=== PATIENT | male | born 1975 | race Hispanic/Latino ===

== ENCOUNTER 2020-10-09 20:38 | Inpatient (IN) | payer BC, OTHER ==
[2020-10-09] MEDS ORDERED: ACETAMINOPHEN 500 MG TAB ONE (21:20)
[2020-10-09] MEDS ORDERED: NA CHLORIDE 0.9% 1,000 ML ONE (21:21)
[2020-10-09 21:25] LABS: Protime INR 1.24
[2020-10-09 21:39] LABS: Basophils % 0.5 % (0-1.3); Hematocrit 39.4 % (39.6-49.0); Lymphocytes % 15.5 % (15.3-44.8); MPV 7.5 fL (7.6-11.3); RBC Red Blood Cell Count 4.92 M/uL (4.33-5.43)
[2020-10-09 21:44] LABS: ALT/SGPT 30 U/L (12-78); AST/SGOT 20 U/L (15-37); Albumin 2.3 g/dL (3.4-5.0); Alkaline Phosphatase 125 U/L (45-117); BUN Blood Urea Nitrogen 8 mg/dL (7-18); Bicarbonate 28 mmol/L (21-32); Bilirubin Direct 0.2 mg/dL (0-0.2); Bilirubin Total 0.6 mg/dL (0.2-1.0); Glucose Level 292 mg/dL (74-106); NT PRO-BNP 25 pg/mL (<125); Potassium 3.5 mmol/L (3.5-5.1); Protein, Total 7.7 g/dL (6.4-8.2); Sodium Level 139 mmol/L (136-145); Troponin (Emerg Dept Use Only) < 0.02 ng/mL (0.0-0.045)
[2020-10-09] MEDS ORDERED: AZITHROMYCIN 500 MG INJ IVPB ONE (22:18)
[2020-10-09] MEDS ORDERED: NA CHLORIDE 0.9% 250 ML ONE (22:18)
[2020-10-09] MEDS ORDERED: dexAMETHasone 10 MG/ML VIAL ONE (22:19)
--- NOTE | 2020-10-09 22:50 | ER ---
Nurse's Notes [facility] Name: Marcelo Cruz Jr Age: 45 yrs Sex: Male : 1975 Arrival Date: 10/09/2020 Time: 20:38 Bed 20 Private MD: Breezy Mims Diagnosis: Coronavirus infection, [id number];Hypoxia Presentation: 10/09 20:55 Chief complaint: Patient states: I am having shortness of breath, cough started last rr5 and had a fever couple of days ago. my checked O2 sat at home its 84% the lowest we got was 74%. Coronavirus screen: Client denies travel out of the [place] in the last 14 days. cough unrelated to allergies, fever, shortness of breath, Client presents with at least one sign or symptom that may indicate coronavirus-19. Standard/surgical mask placed on the client. Provider contacted for isolation considerations. Ebola Screen: Patient negative for fever greater than or equal to 101.5 degrees Fahrenheit, and additional compatible Ebola Virus Disease symptoms Patient denies exposure to infectious person. Patient denies travel to an Ebola-affected area in the 21 days before illness onset. Initial Sepsis Screen: Does the patient meet any 2 criteria? RR > 20 per min. HR > 90 bpm. Yes Does the patient have a suspected source of infection? Yes: Productive cough/pneumonia. Risk Assessment: Do you want to hurt yourself or someone else? Patient reports no desire to harm self or others. Onset of symptoms was October 09, 2020. 20:55 Method Of Arrival: Ambulatory rr5 20:55 Acuity: ANA 2 rr5 Triage Assessment: 21:00 General: Appears uncomfortable, Behavior is appropriate for age. Pain: Denies pain. ea Respiratory: Reports shortness of breath at rest Respiratory effort is labored, Respiratory pattern is tachypnea the patient has mild shortness of breath. 21:00 Respiratory: Onset: The symptoms/episode began/occurred gradually. rr5 Historical: - Allergies: 20:59 No Known Allergies; rr5 - Home Meds: 20:59 metformin 750 mg Oral Tb24 [Active]; atorvastatin oral oral [Active]; rr5 - PMHx: 20:59 Hypertension; Diabetes - NIDDM; rr5 - PSHx: 20:59 None; rr5 - Immunization history:: Adult Immunizations up to date. - Social history:: Smoking status: unknown Patient/guardian denies using alcohol, street drugs. Screenin:13 Abuse screen: Denies threats or abuse. Nutritional screening: No deficits noted. ca1 Tuberculosis screening: No symptoms or risk factors identified. Fall Risk IV access (20 points). Assessment: 21:00 General: Appears in no apparent distress. comfortable, Behavior is calm, cooperative, rr5 appropriate for age, Reports fever for feeling ill for. 21:00 Pain: Denies pain. Neuro: Level of Consciousness is awake, alert, obeys commands, rr5 Oriented to person, place, time, situation. Cardiovascular: Capillary refill < 3 seconds Patient's skin is warm and dry. Rhythm is sinus tachycardia. Respiratory: Reports shortness of breath cough that is Airway is patent Respiratory effort is even, unlabored, Respiratory pattern is regular, symmetrical, GI: No signs and/or symptoms were reported involving the gastrointestinal system. : No signs and/or symptoms were reported regarding the genitourinary system. EENT: No signs and/or symptoms were reported regarding the EENT system. Derm: Skin is intact, is healthy with good turgor, Skin temperature is warm. Musculoskeletal: Circulation, motion, and sensation intact. Capillary refill < 3 seconds. 22:27 Reassessment: Patient appears in no apparent distress at this time. Patient is alert, rr5 oriented x 3, equal unlabored respirations, skin warm/dry/pink. back from CT scan awake alert. Patient states feeling better. Patient states symptoms have improved. 22:55 Reassessment: covid positive advised for admission agreed for the plan of care. rr5 23:10 Reassessment: hospitalist at bedside. rr5 10/10 00:00 Reassessment: Patient appears in no apparent distress at this time. No changes from rr5 previously documented assessment. for ER hold admission Patient states symptoms have improved. 07:00 Reassessment: RECD REPORT FROM ALEJO CALLE. PT ON ER HOLD, SEE [facility]. bp 15:30 Reassessment: ADMIT COMPLETE, REPORT TO KRISTIAN CALLE. PT SAVANNA ON O2. bp Vital Signs: 10/09 20:55 BP 140 / 70; Pulse 103; Resp 22; Temp 99.9; Pulse Ox 84% on R/A; Weight 156.04 kg; rr5 Height 5 ft. 8 in. (172.72 cm); Pain 0/10; 21:05 Pulse Ox 93% on 3 lpm NC; rr5 22:25 BP 133 / 70; Pulse 88; Resp 19; Pulse Ox 92% on 3 lpm NC; rr5 10/10 00:00 BP 144 / 80; Pulse 82; Resp 26; Pulse Ox 94% on 3 lpm NC; rr5 00:46 BP 140 / 85; Pulse 80; Resp 24; Temp 99.5; Pulse Ox 93% on 3 lpm NC; rr5 10/09 20:55 Body Mass Index 52.31 (156.04 kg, 172.72 cm) rr5 ED Course: 10/09 20:38 Patient arrived in ED. am2 20:38 Breezy Mims DO is Private Physician. am2 20:46 Stephanie Anthony FNP-C is [facility]. kb 20:46 Deonte Robert MD is Attending Physician. kb 20:55 Alejo Perez, RN is Primary Nurse. rr5 20:58 Triage completed. rr5 20:59 Arm band placed on right wrist. rr5 21:00 Oxygen administration via nasal cannula \T\ 3L/min. rr5 21:05 COVID swab sent to lab. Flu and/or RSV swab sent to lab. rr5 21:13 Inserted saline lock: 20 gauge in left antecubital area, using aseptic technique. Blood ca1 collected. 21:14 Patient has correct armband on for positive identification. Placed in gown. Bed in low ca1 position. Call light in reach. Side rails up X 1. 21:15 EKG done, by ED staff, reviewed by Stephanie CLAUDIO. rr5 21:22 Chest Single View XRAY In Process Unspecified. EDMS 22:34 CT Chest For PE Angio In Process Unspecified. EDMS 22:48 López King is Hospitalizing Provider. kb 10/10 00:27 No provider procedures requiring assistance completed. Patient admitted, IV remains in rr5 place. intact, No redness/swelling at site. 06:56 Primary Nurse role handed off by Alejo Perez, ALVA bp 06:56 Nomran Tejada, ALVA is Primary Nurse. bp Administered Medications: 11/29 21:18 Drug: Tylenol 1000 mg Route: PO; rr5 22:20 Follow up: Response: No adverse reaction rr5 21:19 Drug: NS 0.9% 1000 ml Route: IV; Rate: 1000 ml; Site: left antecubital; rr5 22:30 Follow up: Response: No adverse reaction; IV Status: Completed infusion; IV Intake: rr5 1000ml 22:23 Dru mg of (Zithromax 500 mg, NS 0.9% 250 ml) Route: IVPB; Infused Over: 1 hrs; rr5 Site: left antecubital; 23:20 Follow up: Response: No adverse reaction; IV Status: Completed infusion; IV Intake: rr5 250ml 22:25 Drug: Decadron - Dexamethasone 10 mg Route: IVP; Site: left antecubital; rr5 23:25 Follow up: Response: No adverse reaction rr5 Intake: 22:30 IV: 1000ml; Total: 1000ml. rr5 23:20 IV: 250ml; Total: 1250ml. rr5 Outcome: 22:49 Decision to Hospitalize by Provider. 10/10 00:27 Admitted to ER Hold. Please see [facility] for further documentation. rr5 Condition: stable Instructed on the need for admit. 15:31 Patient left the ED. bp Signatures: Dispatcher [employer] Stephanie Alexandre, SHANON GRANGERP-Carlotta Brennan am2 Mayda Zaidi, RN RN Norman Smallwood RN RN bp Alejo Perez RN RN rr5 Barbi Philippe RN RN ca1
--- NOTE | 2020-10-09 22:50 | EDPHYS ---
Physician Documentation [facility] Name: Marcelo Cruz Jr Age: 45 yrs Sex: Male : 1975 Arrival Date: 10/09/2020 Time: 20:38 Bed 20 Private MD: Prasanna [facility] ED Physician Deonte Robert HPI: 10/09 21:21 This 45 yrs old Male presents to ER via Ambulatory with complaints of Cough, kb Shortness Of Breath. 21:21 The patient or guardian reports cough, that is intermittent, described as moderate, kb with no sputum, difficulty breathing, flu symptoms, low-grade fever. Onset: The symptoms/episode began/occurred 4 day(s) ago. Severity of symptoms: At their worst the symptoms were moderate, in the emergency department the symptoms are unchanged. Modifying factors: The symptoms are alleviated by nothing, the symptoms are aggravated by nothing. Associated signs and symptoms: Pertinent positives: fever, Pertinent negatives: chest pain, diarrhea, ear ache, nausea, rhinorrhea, sore throat, vomiting. The patient has not experienced similar symptoms in the past. The patient has not recently seen a physician. . Pt reports cough, fever, malaise and shortness of breath for 4 days. A nurse told him he should check his oxygen level so he got a pulse ox and his sat was 85%.. Historical: - Allergies: 20:59 No Known Allergies; rr5 - Home Meds: 20:59 metformin 750 mg Oral Tb24 [Active]; atorvastatin oral oral [Active]; rr5 - PMHx: 20:59 Hypertension; Diabetes - NIDDM; rr5 - PSHx: 20:59 None; rr5 - Immunization history:: Adult Immunizations up to date. - Social history:: Smoking status: unknown Patient/guardian denies using alcohol, street drugs. ROS: 21:21 Cardiovascular: Negative for chest pain, palpitations, and edema, Abdomen/GI: Negative kb for abdominal pain, nausea, vomiting, diarrhea, and constipation, Back: Negative for injury and pain, MS/Extremity: Negative for injury and deformity, Skin: Negative for injury, rash, and discoloration, Neuro: Negative for headache, weakness, numbness, tingling, and seizure. 21:21 Constitutional: Positive for fever, malaise, Negative for body aches, chills, fatigue, poor PO intake, weight loss. 21:21 Respiratory: Positive for cough, dyspnea on exertion, shortness of breath, Negative for hemoptysis, orthopnea, pleurisy, sputum production, wheezing. Exam: 21:19 Constitutional: This is a well developed, well nourished patient who is awake, alert, kb and in no acute distress. Head/Face: Normocephalic, atraumatic. Chest/axilla: Normal chest wall appearance and motion. Nontender with no deformity. No lesions are appreciated. Cardiovascular: Regular rate and rhythm with a normal S1 and S2. No gallops, murmurs, or rubs. Normal PMI, no JVD. No pulse deficits. Respiratory: Lungs have equal breath sounds bilaterally, clear to auscultation and percussion. No rales, rhonchi or wheezes noted. No increased work of breathing, no retractions or nasal flaring. Abdomen/GI: Soft, non-tender, with normal bowel sounds. No distension or tympany. No guarding or rebound. No evidence of tenderness throughout. Skin: Warm, dry with normal turgor. Normal color with no rashes, no lesions, and no evidence of cellulitis. MS/ Extremity: Pulses equal, no cyanosis. Neurovascular intact. Full, normal range of motion. Neuro: Awake and alert, GCS 15, oriented to person, place, time, and situation. Cranial nerves II-XII grossly intact. Motor strength 5/5 in all extremities. Sensory grossly intact. Cerebellar exam normal. Normal gait. 21:19 ECG was reviewed by the Attending Physician. Vital Signs: 20:55 BP 140 / 70; Pulse 103; Resp 22; Temp 99.9; Pulse Ox 84% on R/A; Weight 156.04 kg; rr5 Height 5 ft. 8 in. (172.72 cm); Pain 0/10; 21:05 Pulse Ox 93% on 3 lpm NC; rr5 22:25 BP 133 / 70; Pulse 88; Resp 19; Pulse Ox 92% on 3 lpm NC; rr5 1130 00:00 BP 144 / 80; Pulse 82; Resp 26; Pulse Ox 94% on 3 lpm NC; rr5 00:46 BP 140 / 85; Pulse 80; Resp 24; Temp 99.5; Pulse Ox 93% on 3 lpm NC; rr5 10/09 20:55 Body Mass Index 52.31 (156.04 kg, 172.72 cm) rr5 MDM: 10/09 20:46 Patient medically screened. kb 21:20 Data reviewed: vital signs, nurses notes. Data interpreted: Pulse oximetry: on room air kb is 84 %. Interpretation: hypoxia. Plan: O2 by NC applied. sat increased to 93% on 3L NC. 22:11 Counseling: I had a detailed discussion with the patient and/or guardian regarding: the kb historical points, exam findings, and any diagnostic results supporting the discharge/admit diagnosis, lab results, radiology results, the need for further work-up and treatment in the hospital. 10/09 20:47 Order name: Flu; Complete Time: 22:14 kb 10/09 20:53 Order name: Basic Metabolic Panel; Complete Time: 21:49 kb 10/09 20:53 Order name: CBC with Diff; Complete Time: 21:42 kb 10/09 20:53 Order name: LFT's; Complete Time: 21:49 kb 10/09 20:53 Order name: Magnesium; Complete Time: 21:49 kb 10/09 20:53 Order name: NT PRO-BNP; Complete Time: 21:49 kb 10/09 20:53 Order name: PT-INR; Complete Time: 21:42 kb 10/09 20:53 Order name: Troponin (emerg Dept Use Only); Complete Time: 21:49 kb 10/09 20:53 Order name: D-Dimer; Complete Time: 21:42 kb 10/09 21:03 Order name: Procalcitonin; Complete Time: 21:55 kb 10/09 21:03 Order name: Lactate; Complete Time: 21:49 kb 10/09 21:03 Order name: Blood Culture Adult (2) kb 10/09 22:34 Order name: SARS-COV-2 RT PCR; Complete Time: 22:34 EDMS 10/10 00:29 Order name: Lactate Sepsis 2 HR Follow-up; Complete Time: 14:28 EDMS 10/10 05:09 Order name: Urine Dipstick--Ancillary (enter results) sg 10/10 05:38 Order name: CBC with Automated Diff; Complete Time: 14:28 EDMS 10/10 05:43 Order name: Basic Metabolic Panel; Complete Time: 14:28 EDMS 10/10 05:43 Order name: Lipid Profile; Complete Time: 14:28 EDMS 10/10 05:43 Order name: C-Reactive Protein; Complete Time: 14:28 EDMS 10/10 05:43 Order name: Ferritin; Complete Time: 14: EDMS 10/10 05:58 Order name: Urine Dipstick-Ancillary; Complete Time: 14:28 EDMS 10/10 06:13 Order name: D-Dimer; Complete Time: 14: EDMS 10/10 07:49 Order name: Glucose, Ancillary Testing; Complete Time: 14: EDMS 10/10 08:23 Order name: Manual Differential; Complete Time: 14: EDMS 10/10 08:44 Order name: Phosphorus; Complete Time: 14: EDMS 10/10 08:44 Order name: Magnesium; Complete Time: 14: EDMS 10/10 10:44 Order name: Urinalysis; Complete Time: 14: EDMS 10/10 11:24 Order name: Glucose, Ancillary Testing; Complete Time: 14: EDMS 10/10 11:41 Order name: Urine Microscopic Only; Complete Time: 14: EDMS 10/09 20:47 Order name: Chest Single View XRAY; Complete Time: 14:28 kb 10/09 20:53 Order name: EKG; Complete Time: 20:54 kb 10/09 20:53 Order name: Cardiac monitoring; Complete Time: 21:17 kb 10/09 20:53 Order name: EKG - Nurse/Tech; Complete Time: 21:17 kb 10/09 20:53 Order name: IV Saline Lock; Complete Time: 21:17 kb 10/09 20:53 Order name: Labs collected and sent; Complete Time: 21:17 kb 10/09 20:53 Order name: O2 Per Protocol; Complete Time: 21:18 kb 10/09 20:53 Order name: O2 Sat Monitoring; Complete Time: 21:18 kb 10/09 21:42 Order name: CT Chest For PE Angio; Complete Time: 14:28 kb EC:19 Rate is 91 beats/min. Rhythm is regular. QRS [place] is Normal. [place] interval is normal at kb 142 msec. QRS interval is normal at 82 msec. QT interval is normal at 362 msec. Administered Medications: 21:18 Drug: Tylenol 1000 mg Route: PO; rr5 22:20 Follow up: Response: No adverse reaction rr5 21:19 Drug: NS 0.9% 1000 ml Route: IV; Rate: 1000 ml; Site: left antecubital; rr5 22:30 Follow up: Response: No adverse reaction; IV Status: Completed infusion; IV Intake: rr5 1000ml 22:23 Dru mg of (Zithromax 500 mg, NS 0.9% 250 ml) Route: IVPB; Infused Over: 1 hrs; rr5 Site: left antecubital; 23:20 Follow up: Response: No adverse reaction; IV Status: Completed infusion; IV Intake: rr5 250ml 22:25 Drug: Decadron - Dexamethasone 10 mg Route: IVP; Site: left antecubital; rr5 23:25 Follow up: Response: No adverse reaction rr5 Disposition: 10/11 03:35 Co-signature as Attending Physician, Deonte Robert MD. ma2 Disposition: 10/09/20 22:49 Hospitalization ordered by López King for Inpatient Admission. Preliminary diagnosis are Coronavirus infection, unspecified - COVID-19, Hypoxia. - Bed requested for Intensive Care Unit. - Status is Inpatient Admission. bp - Condition is Stable. - Problem is new. - Symptoms are unchanged. Signatures: Dispatcher [employer] [facility] Stephanie Anthony, CHITO-Hi GRANGERP-Lorena Trevino Cindy, ALVA CALLE cg Normna Tejada, Deonte Willams RN, MD MD ma2 Sean Perez, RN RN rr5 Corrections: (The following items were deleted from the chart) 10/09 21:41 21:00 CORONAVIRUS+MR.LAB.BRZ ordered. [facility] 23:38 22:49 Hospitalization Ordered by López King for Inpatient Admission. Preliminary diagnosis is Coronavirus infection, unspecified - COVID-19; Hypoxia. Bed requested for Telemetry/MedSurg (Inpatient). Status is Inpatient Admission. Condition is Stable. Problem is new. Symptoms are unchanged. 10/10 14:17 10/09 23:38 10/09/2020 22:49 Hospitalization Ordered by López King for Inpatient bd Admission. Preliminary diagnosis is Coronavirus infection, unspecified - COVID-19; Hypoxia. Bed requested for [facility] ER HOLD. Status is Inpatient Admission. Condition is Stable. Problem is new. Symptoms are unchanged. cg 11 14:18 14:17 10/09/2020 22:49 Hospitalization Ordered by López King for Inpatient bd Admission. Preliminary diagnosis is Coronavirus infection, unspecified - COVID-19; Hypoxia. Bed requested for Intensive Care Unit. Status is Inpatient Admission. Condition is Stable. Problem is new. Symptoms are unchanged. bd 15:31 14:18 10/09/2020 22:49 Hospitalization Ordered by López King for Inpatient bp Admission. Preliminary diagnosis is Coronavirus infection, unspecified - COVID-19; Hypoxia. Bed requested for Intensive Care Unit. Status is Inpatient Admission. Condition is Stable. Problem is new. Symptoms are unchanged. bd
--- NOTE | 2020-10-09 23:55 | P.HP ---
Certification for Inpatient Patient admitted to: Inpatient With expected LOS: >2 Midnights Practitioner: I am a practitioner with admitting privileges, knowledge of patient current condition, hospital course, and medical plan of care. Services: Services provided to patient in accordance with Admission requirements found in Title 42 Section 412.3 of the Code of Federal Regulations Patient History Date of Service: 10/09/20 Reason for admission: Shortness of breath History of Present Illness: 45-year-old morbidly obese gentleman with a history of diabetes mellitus presented to the emergency department with a complaint of shortness of breath of 2 days duration. Patient also reports nonproductive cough and fever. Patient was hypoxic in the ED with oxygen saturation of around 83% on room air. He tested positive for COVID 19. Chest x-ray and CTA thorax demonstrates diffuse patchy infiltrate from mary pneumonitis. The patient is admitted for further management of COVID pneumonia with hypoxia. - Past Medical/Surgical History Diabetic: Yes -: Obesity -: Diabetes mellitus -: Hyperlipidemia - Family History Mother -: Diabetes - Social History Smoking Status: Never smoker Alcohol use: No CD- Drugs: No Place of Residence: Home Review of Systems Other: Except as documented, all other systems reviewed and negative. Physical Examination - Physical Exam General: Alert, In no apparent distress, Oriented x3, Obese HEENT: Atraumatic, Mucous membr. moist/pink Neck: Supple, JVD not distended Respiratory: Normal air movement, Crackles/rales (Bibasilar crackles) Cardiovascular: No edema, Regular rate/rhythm, Normal S1 S2 Capillary refill: <2 Seconds Gastrointestinal: Normal bowel sounds, Soft and benign, Non-distended, No tenderness Musculoskeletal: No swelling, No tenderness Integumentary: No rashes, No erythema Neurological: Normal speech, Normal strength at 5/5 x4 extr, Cranial nerves 3-12 intact - Studies Laboratory Data (last 24 hrs) 10/09/20 21:10: PT 14.6 H, INR 1.24 10/09/20 21:10: WBC 6.2, Hgb 13.5 L, Hct 39.4 L, Plt Count 266 10/09/20 21:10: Sodium 139, Potassium 3.5, BUN 8, Creatinine 0.64, Glucose 292 H, Magnesium 2.0, Total Bilirubin 0.6, AST 20, ALT 30, Alkaline Phosphatase 125 H Microbiology Data (last 24 hrs): 10/09/20 21:10 Nasopharnyx Influenza Type A Antigen Screen - Final 10/09/20 21:10 Nasopharnyx Influenza Type B Antigen Screen - Final Assessment and Plan - Problems (Diagnosis) (1) Pneumonia due to COVID-19 virus Current Visit: Yes Status: Acute (2) Acute respiratory failure with hypoxia Current Visit: Yes Status: Acute (3) Morbid obesity Current Visit: Yes Status: Acute (4) Diabetes mellitus type 2 in obese Current Visit: Yes Status: Acute - Plan Admit to the medical floor. Start IV steroid. Supplemental oxygen Start Venous thromboembolism prophylaxis with a request. Consult to pulmonary. Insulin sliding scale for glucose management. May need long-acting insulin to cover steroid induced hyperglycemia. Monitor acute phase reactant levels. Supplement with zinc vitamin-D and vitamin-C. - Advance Directives Does patient have a Living Will: No Does patient have a Durable POA for Healthcare: No
[2020-10-10] MEDS ORDERED: D50W 25 GM/50 ML SYRINGE IV PRN (00:57)
[2020-10-10] MEDS ORDERED: GLUCAGON 1 MG/VIAL IM PRN (00:57)
[2020-10-10] MEDS ORDERED: ACETAMINOPHEN 500 MG TAB PO PRN (00:57)
[2020-10-10 05:29] LABS: Absolute Lymphocytes (CBC) 0.5 K/uL (0.7-4.9); Basophils % 0.1 % (0-1.3); Hematocrit 38.1 % (39.6-49.0); Lymphocytes % 10.7 % (15.3-44.8); MPV 7.4 fL (7.6-11.3); RBC Red Blood Cell Count 4.73 M/uL (4.33-5.43)
[2020-10-10 05:43] LABS: BUN Blood Urea Nitrogen 7 mg/dL (7-18); Bicarbonate 25 mmol/L (21-32); Ferritin 542.8 ng/mL (26-388); Glucose Level 347 mg/dL (74-106); HDL Cholesterol 25 mg/dL (40-60); LDL Cholesterol, Calculated 66 (<130); Potassium 3.8 mmol/L (3.5-5.1); Sodium Level 140 mmol/L (136-145)
[2020-10-10 05:58] LABS: Urine Blood TRACE (NEG); Urine Glucose 2+ (NEG); Urine Protein 1+ (NEG); Urine Specific Gravity 1.015 (1.005-1.030); Urine pH 8.5 (5.0-7.0)
[2020-10-10] MEDS ORDERED: POTASSIUM CL SA 10 MEQ TAB PO ONE ×2 (06:12→06:29)
[2020-10-10] MEDS: INSULIN -REGULAR HUMAN 50 UNIT/0.5 ML ML SQ SCH ×4 (07:30→21:32)
--- NOTE | 2020-10-10 07:50 | RAD REPORT ---
EXAM DESCRIPTION: RAD - Chest Single View - 10/09/2020 9:22 pm CLINICAL HISTORY: Cough;Dyspnea COMPARISON: None TECHNIQUE: AP portable chest image was obtained 10/09/2020 9:22 pm . FINDINGS: Lung volumes are low. Patchy interstitial and airspace opacities are scattered in both diane g david. Trachea is midline. Heart and vasculature are normal. No measurable pleural effusion and no pneumothorax. No acute bony abnormality seen. No acute aortic findings suspected. IMPRESSION: Scattered bilateral lung parenchymal opacification most likely viral infiltrate. Influenza pneumonia, organizing pneumonia and connective tissue diseases can give a similar presentat ion.
[2020-10-10 08:22] LABS: Blood Morphology Comment NOT SEEN (NOT SEEN); Platelet Estimate ADEQ
[2020-10-10 08:44] LABS: Phosphorus 3.6 mg/dL (2.5-4.9)
[2020-10-10] MEDS: APIXABAN 5 MG TABLET PO SCH ×2 (08:57→21:33)
[2020-10-10] MEDS: ZINC SULFATE 220 MG CAP PO SCH (08:58)
[2020-10-10] MEDS: VITAMIN D 1000 UNIT TAB PO SCH (08:58)
[2020-10-10] MEDS: ASCORBIC ACID 500 MG TABLET PO SCH ×2 (08:58→21:33)
[2020-10-10] MEDS: FAMOTIDINE 20 MG/2 ML VIAL IV SCH ×2 (08:58→21:33)
[2020-10-10] MEDS: METHYLPREDNISOLONE 40 MG INJ IV SCH ×2 (08:58→21:33)
[2020-10-10] MEDS ORDERED: APIXABAN 2.5 MG TABLET PO SCH (09:00)
[2020-10-10] MEDS ORDERED: INSULIN -REGULAR HUMAN 50 UNIT/0.5 ML ML ONE ×2 (09:01→11:56)
[2020-10-10] MEDS ORDERED: ZINC SULFATE 220 MG CAP ONE (09:02)
[2020-10-10] MEDS ORDERED: METHYLPREDNISOLONE 125 MG INJ ONE (09:02)
[2020-10-10] MEDS ORDERED: FAMOTIDINE 20 MG TAB ONE (09:03)
[2020-10-10] MEDS ORDERED: ASCORBIC ACID 500 MG TABLET ONE (09:03)
--- NOTE | 2020-10-10 09:11 | RAD REPORT ---
EXAM DESCRIPTION: CT - Chest For Pe Angio - 10/10/2020 3:48 am CLINICAL HISTORY: DYSPNEA COMPARISON: None Available. TECHNIQUE: CTA of the chest obtained following the uncomplicated intravenous administration of iodin ated contrast.. 3-D/MIP reformatted images of the chest available for evaluation. Respiratory motion artifact. FINDINGS: Chest: Pulmonary arteries: Contrast bolus is adequate.No filling defects identified in the pulmonary arterie s to suggest pulmonary embolus. Thyroid: No abnormalities of the visualized thyroid. Great Vessels: Great vessels have normal anatomic configuration. Thoracic Aorta: Minimal atherosclerosis of the thoracic aorta. Normal caliber. Heart: No cardiomegaly, significant pericardial effusion, or coronary artery atherosclerosis Lymph Nodes: No enlarged mediastinal lymph nodes identified. Esophagus: No abnormalities of the esophagus identified. Other: No additional findings. Lungs: Diffuse bilateral peripheral ground glass and airspace opacities. Pleura: No pleural effusion or pneumothorax. Trachea/Airways: No abnormalities of the visualized trachea or airways. Bones: Degenerative endplate spondylosis. Upper Abdomen: Limited images of the upper abdomen demonstrate no definite abnormalities of visualize d portions of the gallbladder, pancreas, spleen, adrenal glands, or kidneys. Decreased density of the liver. IMPRESSION: 1. No pulmonary embolus. 2. Diffuse bilateral peripheral groundglass and airspace opacities. Commonly reported imaging feature s of viral pneumonia are present. Other processes such as influenza pneumonia and organizing pneumoni a, as can be seen with drug toxicity and connective tissue disease, can cause a similar imaging patte rn. PneTyp Reference: https://pubs.rsna.org/doi/full/10.1148/ryct.5489465271 3. Hepatic steatosis. This exam was performed according to our departmental dose-optimization program, which includes autom ated exposure control, adjustment of the mA and/or kV according to patient size and/or use of iterati ve reconstruction technique. Electronically signed by: Marcello Mcgee 10/09/2020 10:52 PM VP [employer] Due to temporary technical issues with the PACS/Fluency reporting system, reports are being signed by the in house radiologist without review as a courtesy to ensure prompt reporting. The interpreting r adiologist is fully responsible for the content of the report.
[2020-10-10] MEDS ORDERED: INSULIN GLARGINE 100 UNITS/ML SQ SCH (09:30)
--- NOTE | 2020-10-10 09:32 | P.PN ---
Subjective Date of Service: 10/10/20 Chief Complaint: Shortness of breath Subjective: Improving (Feels better after receiving steroids and while using oxygen, requiring 5 L nasal cannula. Continues with cough. Denies nausea/vomiting/diarrhea/abdominal pain.) Review of Systems 10-point ROS is otherwise unremarkable Physical Examination - Vital Signs Temperature: 99.3 F Blood Pressure: 131/69 Pulse: 93 Respirations: 19 Pulse Ox (%): 95 - Physical Exam General: Alert, In no apparent distress, Oriented x3, Obese HEENT: Sclerae nonicteric Respiratory: Other (non-labored on 5L NC) Cardiovascular: Regular rate/rhythm, Edema (trace b/l to ankles) Gastrointestinal: Soft and benign, No tenderness Musculoskeletal: No tenderness Integumentary: No rashes Neurological: Normal speech, Normal affect - Studies Laboratory Data (last 24 hrs) 10/09/20 21:10: PT 14.6 H, INR 1.24 10/09/20 21:10: WBC 6.2, Hgb 13.5 L, Hct 39.4 L, Plt Count 266 10/09/20 21:10: Sodium 139, Potassium 3.5, BUN 8, Creatinine 0.64, Glucose 292 H, Magnesium 2.0, Total Bilirubin 0.6, AST 20, ALT 30, Alkaline Phosphatase 125 H Microbiology Data (last 24 hrs): 10/09/20 21:10 Nasopharnyx Influenza Type A Antigen Screen - Final 10/09/20 21:10 Nasopharnyx Influenza Type B Antigen Screen - Final Assessment & Plan Physician Review Additional Text: Acute respiratory failure with hypoxia COVID-19 pneumonia 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 Continue oxygen as needed Eliquis 5 mg b.i.d. for VTE prophylaxis Pulmonary consulted Continue insulin sliding scale, start 10 units of Lantus this morning. Patient reports last A1c: ~8 Continue to trend CRP daily VTE: eliquis 5mg BID in setting of COVID pneumonia requiring hospitalizatoin Dispo: Anticipate discharge home in the next 48-72hr, pending improvement of oxygenation / symptoms Time Spent Managing Pts Care (In Minutes): 35
[2020-10-10] MEDS ORDERED: INSULIN GLARGINE 100 UNITS/ML SQ ONE (10:13)
[2020-10-10 10:40] LABS: Urine Appearance CLEAR; Urine Bilirubin NEGATIVE (NEG); Urine Blood NEGATIVE (NEG); Urine Color DK YELLOW; Urine Glucose 3+ (NEG); Urine Protein TRACE (NEG); Urine Specific Gravity >=1.030 (1.005-1.030); Urine pH 7.5 (5.0-7.0)
[2020-10-10 10:44] LABS: Urine Microscopic Reflex ORDER UMIC
[2020-10-10 11:40] LABS: Urine Bacteria <20 /HPF (NONE SEEN); Urine RBC NONE SEEN /HPF (NONE SEEN)
[2020-10-10] MEDS: THIAMINE HCL 100 MG TABLET PO SCH (12:38)
--- NOTE | 2020-10-10 12:39 | P.CNS ---
Date of Consult: 10/10/20 Reason for Consult: Respiratory failure Chief Complaint: Respiratory failure from coronal wire History of Present Illness: Patient is 45 years of age started having symptoms last started welling progressive shortness of breath fever cough congestion admitted with pneumonia and respiratory failure from mccullough virus is condition is currently stable is an nasal cannula oxygen no other complaints phase and has a history of diabetes Allergies No Known Allergies Allergy (Unverified 10/10/20 00:57) Home Medications: Atorvastatin Calcium 10 mg PO DAILY 10/10/20 Metformin HCl [Metformin HCl ER] 1 tab PO BID 10/10/20 - Past Medical/Surgical History Diabetic: Yes -: Obesity -: Diabetes mellitus -: Hyperlipidemia - Family History Mother Medical History: Diabetes - Social History Alcohol use: No CD- Drugs: No Place of Residence: Home Review of Systems General: Weakness, Malaise Respiratory: Cough, Shortness of Breath Physical Examination Temp Pulse Resp BP Pulse Ox 99.3 F 84 32 H 102/29 L 91 10/10/20 09:32 10/10/20 12:00 10/10/20 12:00 10/10/20 12:00 10/10/20 12:00 General: Alert, Oriented x3 Respiratory: Clear to auscultation bilaterally Cardiovascular: No edema, Normal S1 S2 Laboratory Data (last 24 hrs) 10/09/20 21:10: PT 14.6 H, INR 1.24 10/09/20 21:10: WBC 6.2, Hgb 13.5 L, Hct 39.4 L, Plt Count 266 10/09/20 21:10: Sodium 139, Potassium 3.5, BUN 8, Creatinine 0.64, Glucose 292 H, Magnesium 2.0, Total Bilirubin 0.6, AST 20, ALT 30, Alkaline Phosphatase 125 H - Problems (1) Acute respiratory failure due to severe acute respiratory syndrome coronavirus 2 (SARS-CoV-2) infection Current Visit: Yes Status: Acute Plan: Patient is 45 years of age admitted with respiratory failure from mccullough virus labs reviewed agree with steroids and anticoagulation continue to monitor
[2020-10-10] MEDS ORDERED: ADENOSINE 6 MG/ 2ML VIAL IV ONE (17:57)
[2020-10-10] MEDS ORDERED: MORPHINE 2 MG/ML SYR IV ONE (18:00)
[2020-10-10] MEDS ORDERED: METOPROLOL TARTRATE 5 MG/5 ML INJ IV STA ×2 (18:16→20:17)
[2020-10-10] MEDS ORDERED: NA CHLORIDE 0.9% 1,000 ML IV ONE (18:17)
[2020-10-10] MEDS ORDERED: NA CHLORIDE 0.9% 1,000 ML ONE (18:23)
[2020-10-10] MEDS ORDERED: METOPROLOL TARTRATE 5 MG/5 ML INJ IV ONE (18:29)
[2020-10-10] MEDS ORDERED: METOPROLOL TARTRATE 5 MG/5 ML INJ IV PRN (20:13)
[2020-10-10] MEDS: NA CHLORIDE 0.9% 1,000 ML IV SCH (21:32)
[2020-10-10] MEDS: MELATONIN 3 MG TABLET PO SCH (21:33)
[2020-10-10] MEDS: ATORVASTATIN 40 MG TAB PO SCH (21:33)
[2020-10-11 05:30] LABS: Absolute Lymphocytes (CBC) 0.6 K/uL (0.7-4.9); Basophils % 0.1 % (0-1.3); Hematocrit 35.4 % (39.6-49.0); Lymphocytes % 2.3 % (15.3-44.8); MPV 7.9 fL (7.6-11.3); RBC Red Blood Cell Count 4.38 M/uL (4.33-5.43)
[2020-10-11 05:48] LABS: BUN Blood Urea Nitrogen 15 mg/dL (7-18); Bicarbonate 23 mmol/L (21-32); Ferritin 670.5 ng/mL (26-388); Glucose Level 319 mg/dL (74-106); Potassium 3.4 mmol/L (3.5-5.1); Sodium Level 142 mmol/L (136-145)
[2020-10-11] MEDS ORDERED: CEFEPIME 1 GM/VIAL IV SCH (05:48)
[2020-10-11] MEDS ORDERED: VANCOMYCIN/NS 1 gm 1 GM/250 ML BAG IVPB SCH (05:48)
[2020-10-11 05:50] LABS: Magnesium 1.4 mg/dL (1.8-2.4)
[2020-10-11] MEDS ORDERED: CEFEPIME 1 GM/VIAL IVP ONE (06:00)
[2020-10-11] MEDS ORDERED: WATER FOR INJ,STERILE 10 ML IV ONE (06:00)
[2020-10-11] MEDS ORDERED: POTASSIUM 25 MEQ EFFERV TAB PO ONE (06:08)
[2020-10-11] MEDS ORDERED: CEFEPIME 1 GM/100 ML BAG IV ONE (06:21)
[2020-10-11] MEDS ORDERED: POTASSIUM 25 MEQ EFFERV TAB ONE (06:25)
[2020-10-11 06:38] LABS: Blood Morphology Comment NOT SEEN (NOT SEEN); Platelet Estimate ADEQ
[2020-10-11] MEDS: NA CHLORIDE 0.9% 1,000 ML IV SCH ×2 (07:00→08:15)
[2020-10-11] MEDS ORDERED: VANCOMYCIN 3 GM in NA CHLORIDE 0.9% 500 ML IVPB ONE ×2 (07:00→08:00)
--- NOTE | 2020-10-11 07:28 | RAD REPORT ---
EXAM DESCRIPTION: [facility] Single View10/11/2020 6:05 am CLINICAL HISTORY: Shortness of breath COMPARISON: October 09 FINDINGS: No significant change in moderate to marked bilateral alveolar opacities likely pneumonia . The heart is mildly enlarged
[2020-10-11] MEDS ORDERED: INSULIN GLARGINE 100 UNITS/ML SQ SCH (08:00)
[2020-10-11] MEDS: INSULIN -REGULAR HUMAN 50 UNIT/0.5 ML ML SQ SCH ×4 (08:16→22:41)
[2020-10-11] MEDS: METHYLPREDNISOLONE 40 MG INJ IV SCH (08:17)
[2020-10-11] MEDS: ZINC SULFATE 220 MG CAP PO SCH (08:17)
[2020-10-11] MEDS: ASCORBIC ACID 500 MG TABLET PO SCH ×2 (08:18→20:57)
[2020-10-11] MEDS: FAMOTIDINE 20 MG/2 ML VIAL IV SCH ×2 (08:18→20:58)
[2020-10-11] MEDS: THIAMINE HCL 100 MG TABLET PO SCH (08:18)
[2020-10-11] MEDS: VITAMIN D 1000 UNIT TAB PO SCH (08:18)
[2020-10-11] MEDS: APIXABAN 5 MG TABLET PO SCH ×2 (08:18→20:58)
[2020-10-11] MEDS ORDERED: THIAMINE HCL 100 MG TABLET PO SCH (09:00)
[2020-10-11] MEDS ORDERED: Magnesium Sulfate 2gm IVPB 2 G/50 ML BAG IV ONE (09:00)
[2020-10-11] MEDS ORDERED: VITAMIN D 1000 UNIT TAB PO SCH (09:00)
[2020-10-11] MEDS ORDERED: ATORVASTATIN 10 MG TAB PO SCH (09:00)
[2020-10-11] MEDS: METHYLPREDNISOLONE 125 MG INJ IV SCH ×2 (09:13→20:44)
[2020-10-11] MEDS: levoFLOXacin 750 MG TAB PO SCH (09:51)
--- NOTE | 2020-10-11 11:16 | P.PN ---
Subjective Date of Service: 10/11/20 Chief Complaint: Respiratory failure from coronal wire Patient clinical condition got worse last night. He developed tachycardia, getting high-flow oxygen, lactic acid was elevated, and his white cell count trended up to 25,000. Patient given IV fluid, and started on IV vancomycin and cefepime for sepsis. He seems to be better this morning. Blood pressure is stable. Heart rate has improved. Noted UA is suggesting the presence of UTI. Patient has a Haile catheter in place. Physical Examination - Vital Signs Temperature: 97.5 F Blood Pressure: 106/62 Pulse: 106 Respirations: 25 Pulse Ox (%): 93 - Physical Exam General: Alert, Mild distress, Obese Neck: Supple, JVD not distended Respiratory: Crackles/rales (Bilateral) Cardiovascular: No edema, Normal S1 S2, Other (Tachycardia, regular rhythm) Gastrointestinal: Normal bowel sounds, Soft and benign, No tenderness Musculoskeletal: No swelling, No tenderness Integumentary: No rashes, No erythema Neurological: Other (Nonfocal) Assessment And Plan - Current Problems (Diagnosis) (1) Pneumonia due to COVID-19 virus Current Visit: Yes Status: Acute (2) Acute respiratory failure with hypoxia Current Visit: Yes Status: Acute (3) Morbid obesity Current Visit: Yes Status: Acute (4) Diabetes mellitus type 2 in obese Current Visit: Yes Status: Acute (5) UTI (urinary tract infection) Current Visit: Yes Status: Acute - Plan Pulmonary input appreciated. IV steroid dose increased. IV fluid discontinued. High-flow oxygen and wean as tolerated. Continue Eliquis Insulin sliding scale for glucose management. Lantus insulin increased to 15 units daily to treat hyperglycemia. Monitor acute phase reactant levels. Contain zinc vitamin-D and vitamin-C supplementation. Patient is on oral Levaquin for UTI.
--- NOTE | 2020-10-11 11:50 | P.PN ---
Subjective Date of Service: 10/11/20 Chief Complaint: Respiratory failure from coronal wire No change in patient's condition requiring high concentrations of oxygen feeling a little better catheter brace last night was started on broad-spectrum antibiotics including IV fluid this patient was flagged for sepsis Review of Systems General: Weakness Respiratory: Shortness of Breath Physical Examination - Vital Signs Temperature: 97.5 F Blood Pressure: 106/62 Pulse: 106 Respirations: 25 Pulse Ox (%): 93 Assessment & Plan - Problems (Diagnosis) (1) Acute respiratory failure due to severe acute respiratory syndrome coronavirus 2 (SARS-CoV-2) infection Current Visit: Yes Status: Acute Plan: Respiratory failure from mccullough virus CRP pro calcitonin level elevated change to p.o. levofloxacin lactic acid also elevated use BiPAP advise patient to try prone ventilation Solu-Medrol dose increased
[2020-10-11] MEDS ORDERED: CEFEPIME/SWI 1gm 10 ML IVP SCH (18:00)
[2020-10-11] MEDS ORDERED: VANCOMYCIN 2 GM in NA CHLORIDE 0.9% 500 ML IVPB SCH ×2 (19:00→20:00)
[2020-10-11] MEDS: MELATONIN 3 MG TABLET PO SCH (20:57)
[2020-10-11] MEDS: ATORVASTATIN 40 MG TAB PO SCH (20:58)
[2020-10-12 05:11] LABS: Absolute Lymphocytes (CBC) 0.8 K/uL (0.7-4.9); Basophils % 0.1 % (0-1.3); Hematocrit 36.5 % (39.6-49.0); Lymphocytes % 4.2 % (15.3-44.8); MPV 7.9 fL (7.6-11.3); RBC Red Blood Cell Count 4.53 M/uL (4.33-5.43)
[2020-10-12 05:46] LABS: Ferritin 607.4 ng/mL (26-388)
--- NOTE | 2020-10-12 06:10 | EKG ---
Test Date: 2020-10-10 Test Time: 18:08:16 Photographic Plate Maker: [place] MEASUREMENT RESULTS: Intervals: Rate: 142 RI: 112 QRSD: 78 QT: 352 QTc: 541 Griffin: P: 46 RI: 112 QRS: 73 T: 62 INTERPRETIVE STATEMENTS: Sinus tachycardia Nonspecific ST and T wave abnormality Abnormal ECG Compared to ECG 10/10/2020 17:10:15 Supraventricular tachycardia no longer present Possible ischemia no longer present ST (T wave) deviation still present Electronically Signed On 10-12-20 06:09:15 ACCESS NURSE by Vin Uribe
--- NOTE | 2020-10-12 06:11 | EKG ---
Test Date: 2020-10-10 Test Time: 17:10:15 Rag Inspector: TOD MEASUREMENT RESULTS: Intervals: Rate: 133 DE: QRSD: 70 QT: 286 QTc: 425 [place]: P: DE: QRS: 68 T: 260 INTERPRETIVE STATEMENTS: Supraventricular tachycardia ST & T wave abnormality, consider inferior ischemia Abnormal ECG Compared to ECG 10/09/2020 21:09:48 ST (T wave) deviation now present Possible ischemia now present Sinus rhythm no longer present Electronically Signed On 10-12-20 06:09:34 MANAGEMENT SPECIALIST by Vin Uribe
[2020-10-12 07:00] LABS: BUN Blood Urea Nitrogen 16 mg/dL (7-18); Bicarbonate 29 mmol/L (21-32); Glucose Level 343 mg/dL (74-106); Magnesium 2.5 mg/dL (1.8-2.4); Sodium Level 140 mmol/L (136-145)
[2020-10-12] MEDS: ASCORBIC ACID 500 MG TABLET PO SCH ×2 (08:43→20:36)
[2020-10-12] MEDS: METHYLPREDNISOLONE 125 MG INJ IV SCH ×2 (08:43→20:37)
[2020-10-12] MEDS: VITAMIN D 1000 UNIT TAB PO SCH (08:43)
[2020-10-12] MEDS: APIXABAN 5 MG TABLET PO SCH ×2 (08:43→20:36)
[2020-10-12] MEDS: THIAMINE HCL 100 MG TABLET PO SCH (08:43)
[2020-10-12] MEDS: FUROSEMIDE 20 MG/ 2ML VIAL IV SCH (08:44)
[2020-10-12] MEDS: ZINC SULFATE 220 MG CAP PO SCH (08:44)
[2020-10-12] MEDS: INSULIN -REGULAR HUMAN 50 UNIT/0.5 ML ML SQ SCH ×4 (08:44→21:05)
[2020-10-12] MEDS: FAMOTIDINE 20 MG/2 ML VIAL IV SCH ×2 (08:44→20:39)
[2020-10-12] MEDS: INSULIN GLARGINE 100 UNITS/ML SQ SCH ×2 (08:45→21:04)
[2020-10-12] MEDS: levoFLOXacin 750 MG TAB PO SCH (08:45)
[2020-10-12] MEDS ORDERED: METHYLPREDNISOLONE 125 MG INJ IV SCH (09:00)
--- NOTE | 2020-10-12 10:59 | P.PN ---
Subjective Date of Service: 10/12/20 Chief Complaint: Respiratory failure from coronal wire Patient he feels better. His WBC count trended down today. He used BiPAP last night. Patient may have obstructive sleep apnea. He is currently tolerating high-flow oxygen. Physical Examination - Vital Signs Temperature: 98 F Blood Pressure: 113/66 Pulse: 86 Respirations: 23 Pulse Ox (%): 88 - Physical Exam General: Alert, Mild distress Neck: Supple Respiratory: Crackles/rales (Bilateral) Cardiovascular: No edema, Regular rate/rhythm, Normal S1 S2 Gastrointestinal: Soft and benign, Non-distended Musculoskeletal: No swelling Integumentary: No rashes, No erythema Neurological: Other (Nonfocal) Assessment And Plan - Current Problems (Diagnosis) (1) Pneumonia due to COVID-19 virus Current Visit: Yes Status: Acute (2) Acute respiratory failure with hypoxia Current Visit: Yes Status: Acute (3) Morbid obesity Current Visit: Yes Status: Acute (4) Diabetes mellitus type 2 in obese Current Visit: Yes Status: Acute (5) UTI (urinary tract infection) Current Visit: Yes Status: Acute - Plan Continue current IV steroid dose. High-flow oxygen and wean as tolerated. Continue Eliquis Insulin sliding scale for glucose management. Titrate Lantus insulin. Now at 20 units daily. Monitor acute phase reactant levels. Contain zinc vitamin-D and vitamin-C supplementation. Patient is on oral Levaquin for UTI.
[2020-10-12] MEDS ORDERED: APIXABAN 2.5 MG TABLET PO SCH (12:32)
--- NOTE | 2020-10-12 12:33 | P.PN ---
Subjective Date of Service: 10/12/20 Chief Complaint: Respiratory failure from mccullough virus Patient is improving still requiring high concentrations of oxygen 70% CRP is declining Review of Systems General: Weakness Respiratory: Shortness of Breath Physical Examination - Vital Signs Temperature: 98 F Blood Pressure: 113/66 Pulse: 86 Respirations: 23 Pulse Ox (%): 88 - Physical Exam General: Alert, Oriented x3, Mild distress Respiratory: Clear to auscultation bilaterally Cardiovascular: No edema, Normal S1 S2 Assessment & Plan - Problems (Diagnosis) (1) Acute respiratory failure due to severe acute respiratory syndrome coronavirus 2 (SARS-CoV-2) infection Current Visit: Yes Status: Acute Plan: May respiratory failure from mccullough virus continue with steroids CRP is declining continue to titrate O2 to a sat of 90% prone position ventilation blood sugars elevated insulin increase white count is declining continue with Eliquis low-dose Lasix
[2020-10-12] MEDS: SPIRONOLACTONE 25 MG TABLET PO SCH (12:53)
[2020-10-12] MEDS: MELATONIN 3 MG TABLET PO SCH (20:37)
[2020-10-12] MEDS: ATORVASTATIN 40 MG TAB PO SCH (20:37)
[2020-10-13 05:59] LABS: Absolute Lymphocytes (CBC) 0.7 K/uL (0.7-4.9); Basophils % 0.1 % (0-1.3); Lymphocytes % 5.5 % (15.3-44.8); MPV 8.2 fL (7.6-11.3); RBC Red Blood Cell Count 4.44 M/uL (4.33-5.43)
[2020-10-13 06:37] LABS: C-Reactive Protein 89.8 mg/L (<3.00); Ferritin 541.2 ng/mL (26-388)
[2020-10-13] MEDS: INSULIN -REGULAR HUMAN 50 UNIT/0.5 ML ML SQ SCH ×4 (08:16→20:51)
[2020-10-13] MEDS: METHYLPREDNISOLONE 125 MG INJ IV SCH ×2 (08:16→20:52)
[2020-10-13] MEDS: APIXABAN 5 MG TABLET PO SCH ×2 (08:17→20:51)
[2020-10-13] MEDS: ASCORBIC ACID 500 MG TABLET PO SCH ×2 (08:17→20:51)
[2020-10-13] MEDS: VITAMIN D 1000 UNIT TAB PO SCH (08:17)
[2020-10-13] MEDS: ZINC SULFATE 220 MG CAP PO SCH (08:18)
[2020-10-13] MEDS: FAMOTIDINE 20 MG/2 ML VIAL IV SCH ×2 (08:19→20:52)
[2020-10-13] MEDS: THIAMINE HCL 100 MG TABLET PO SCH (08:19)
[2020-10-13] MEDS: INSULIN GLARGINE 100 UNITS/ML SQ SCH ×2 (08:19→20:50)
[2020-10-13] MEDS: levoFLOXacin 750 MG TAB PO SCH (08:21)
[2020-10-13] MEDS: SPIRONOLACTONE 25 MG TABLET PO SCH (08:23)
[2020-10-13] MEDS: FUROSEMIDE 20 MG/ 2ML VIAL IV SCH (08:23)
--- NOTE | 2020-10-13 11:24 | P.PN ---
Subjective Date of Service: 10/13/20 Chief Complaint: Respiratory failure from mccullough virus Which changes from yesterday. He has been alternating between BiPAP and high- flow oxygen. He is currently tolerating high-flow oxygen. WBC and inflammatory markers continue to trend down. Physical Examination - Vital Signs Temperature: 96.9 F Blood Pressure: 100/65 Pulse: 76 Respirations: 29 Pulse Ox (%): 90 - Physical Exam General: Alert, In no apparent distress, Obese Neck: Supple, JVD not distended Respiratory: Diminished Cardiovascular: No edema, Regular rate/rhythm, Normal S1 S2 Gastrointestinal: Soft and benign, No tenderness Musculoskeletal: No swelling Integumentary: No rashes, No erythema Neurological: Other (Nonfocal) Assessment And Plan - Current Problems (Diagnosis) (1) Pneumonia due to COVID-19 virus Current Visit: Yes Status: Acute (2) Acute respiratory failure with hypoxia Current Visit: Yes Status: Acute (3) Morbid obesity Current Visit: Yes Status: Acute (4) Diabetes mellitus type 2 in obese Current Visit: Yes Status: Acute (5) UTI (urinary tract infection) Current Visit: Yes Status: Acute - Plan Continue current IV steroid. High-flow oxygen. Continue Eliquis Insulin sliding scale for glucose management. Increase Lantus dose. Monitor acute phase reactant levels. Contain zinc vitamin-D and vitamin-C supplementation. Patient is on oral Levaquin for UTI. Pulmonary is following. Hoping to see clinical improvement to correlate with decreasing inflammatory markers.
--- NOTE | 2020-10-13 13:04 | P.PN ---
Subjective Date of Service: 10/13/20 Chief Complaint: Respiratory failure from mccullough virus Patient is feeling better still requiring high concentrations of oxygen blood sugar elevated Review of Systems General: Weakness Respiratory: Shortness of Breath Physical Examination - Vital Signs Temperature: 96.9 F Blood Pressure: 100/65 Pulse: 76 Respirations: 29 Pulse Ox (%): 90 Assessment & Plan - Problems (Diagnosis) (1) Acute respiratory failure due to severe acute respiratory syndrome coronavirus 2 (SARS-CoV-2) infection Current Visit: Yes Status: Acute Plan: Patient admitted with respiratory failure stable gradually improving CRP is declining blood sugar elevated reduce dose of steroids white count has declined continue to titrate sat to 85-90%
[2020-10-13] MEDS: MELATONIN 3 MG TABLET PO SCH (20:51)
[2020-10-13] MEDS: ATORVASTATIN 40 MG TAB PO SCH (20:52)
[2020-10-14 04:35] LABS: Basophils % 0.5 % (0-1.3); Hematocrit 36.9 % (39.6-49.0); Lymphocytes % 7.4 % (15.3-44.8); MPV 8.7 fL (7.6-11.3); RBC Red Blood Cell Count 4.59 M/uL (4.33-5.43)
[2020-10-14 04:47] LABS: BUN Blood Urea Nitrogen 21 mg/dL (7-18); Bicarbonate 30 mmol/L (21-32); Ferritin 491.1 ng/mL (26-388); Glucose Level 339 mg/dL (74-106); Magnesium 2.3 mg/dL (1.8-2.4); Phosphorus 3.9 mg/dL (2.5-4.9); Potassium 4.4 mmol/L (3.5-5.1); Sodium Level 139 mmol/L (136-145)
[2020-10-14] MEDS: INSULIN -REGULAR HUMAN 50 UNIT/0.5 ML ML SQ SCH ×4 (08:42→21:45)
[2020-10-14] MEDS: INSULIN GLARGINE 100 UNITS/ML SQ SCH ×2 (08:43→21:46)
[2020-10-14] MEDS: THIAMINE HCL 100 MG TABLET PO SCH (08:45)
[2020-10-14] MEDS: FAMOTIDINE 20 MG/2 ML VIAL IV SCH ×2 (08:45→21:44)
[2020-10-14] MEDS: SPIRONOLACTONE 25 MG TABLET PO SCH (08:46)
[2020-10-14] MEDS: ASCORBIC ACID 500 MG TABLET PO SCH ×2 (08:46→21:44)
[2020-10-14] MEDS: VITAMIN D 1000 UNIT TAB PO SCH (08:46)
[2020-10-14] MEDS: ZINC SULFATE 220 MG CAP PO SCH (08:47)
[2020-10-14] MEDS: APIXABAN 5 MG TABLET PO SCH ×2 (08:47→21:43)
[2020-10-14] MEDS: METHYLPREDNISOLONE 125 MG INJ IV SCH (08:47)
[2020-10-14] MEDS: FUROSEMIDE 20 MG/ 2ML VIAL IV SCH (08:47)
[2020-10-14] MEDS: levoFLOXacin 750 MG TAB PO SCH (08:48)
--- NOTE | 2020-10-14 11:53 | P.PN ---
Subjective Date of Service: 10/14/20 Chief Complaint: Respiratory failure from mccullough virus Patient gradually improving clinically. His oxygen saturation is better and high-flow oxygen and may have room to wean down oxygen WBC and inflammatory markers continue to trend down. He was up sitting in a chair when I saw him this morning. He stated he feels better. Physical Examination - Vital Signs Temperature: 97 F Blood Pressure: 106/72 Pulse: 62 Respirations: 24 Pulse Ox (%): 93 - Physical Exam General: In no apparent distress, Obese Respiratory: Diminished Cardiovascular: Regular rate/rhythm Musculoskeletal: No swelling Integumentary: No rashes, No erythema Neurological: Other (Nonfocal) Assessment And Plan - Current Problems (Diagnosis) (1) Pneumonia due to COVID-19 virus Current Visit: Yes Status: Acute (2) Acute respiratory failure with hypoxia Current Visit: Yes Status: Acute (3) Morbid obesity Current Visit: Yes Status: Acute (4) Diabetes mellitus type 2 in obese Current Visit: Yes Status: Acute (5) UTI (urinary tract infection) Current Visit: Yes Status: Acute - Plan Continue current IV steroid. Wean high-flow oxygen as tolerated Continue Eliquis Continue Lantus and insulin sliding scale for glucose 1 Continue zinc vitamin-D and vitamin-C supplementation. Patient is on oral Levaquin for UTI. Pulmonary is following. Hoping to see more clinical improvement to correlate with decreasing inflammatory markers.
--- NOTE | 2020-10-14 12:21 | P.PN ---
Subjective Date of Service: 10/14/20 Chief Complaint: Respiratory failure from mccullough virus Patient is feeling better sitting upright in a chair no new complaint Review of Systems General: Weakness Respiratory: Shortness of Breath Physical Examination - Vital Signs Temperature: 97 F Blood Pressure: 106/72 Pulse: 62 Respirations: 24 Pulse Ox (%): 93 - Physical Exam General: Alert, In no apparent distress, Oriented x3 Assessment & Plan - Problems (Diagnosis) (1) Acute respiratory failure due to severe acute respiratory syndrome coronavirus 2 (SARS-CoV-2) infection Current Visit: Yes Status: Acute Plan: Patient is gradually improving add Diflucan for attention for fungal infection continue with current dose of steroids aggressive blood sugar control chest x- ray has been ordered continue to wean down on the oxygen Enterococcus Mary ileus isolated in the urine sensitive to levofloxacin reduce dose of Levaquin to 500 mg daily CRP is less than 50 vital signs stable and Januvia
[2020-10-14] MEDS: FLUCONAZOLE 100 MG TAB PO SCH (13:01)
[2020-10-14] MEDS: SITAGLIPTIN PHOS 100 MG TAB PO SCH (13:03)
[2020-10-14] MEDS: ATORVASTATIN 40 MG TAB PO SCH (21:43)
[2020-10-14] MEDS: MELATONIN 3 MG TABLET PO SCH (21:44)
[2020-10-14] MEDS: METHYLPREDNISOLONE 40 MG INJ IV SCH (21:44)
[2020-10-15 05:21] VITALS: BMI 51.0
[2020-10-15] MEDS: SITAGLIPTIN PHOS 100 MG TAB PO SCH (08:20)
[2020-10-15] MEDS: METHYLPREDNISOLONE 40 MG INJ IV SCH ×2 (08:20→20:41)
[2020-10-15] MEDS: THIAMINE HCL 100 MG TABLET PO SCH (08:20)
[2020-10-15] MEDS: ZINC SULFATE 220 MG CAP PO SCH (08:21)
[2020-10-15] MEDS: VITAMIN D 1000 UNIT TAB PO SCH (08:21)
[2020-10-15] MEDS: ASCORBIC ACID 500 MG TABLET PO SCH ×2 (08:21→20:41)
[2020-10-15] MEDS: FLUCONAZOLE 100 MG TAB PO SCH (08:21)
[2020-10-15] MEDS: SPIRONOLACTONE 25 MG TABLET PO SCH (08:22)
[2020-10-15] MEDS: APIXABAN 5 MG TABLET PO SCH ×2 (08:23→20:38)
[2020-10-15] MEDS: INSULIN GLARGINE 100 UNITS/ML SQ SCH ×2 (08:24→20:38)
[2020-10-15] MEDS: FAMOTIDINE 20 MG/2 ML VIAL IV SCH ×2 (08:24→20:40)
[2020-10-15] MEDS: INSULIN -REGULAR HUMAN 50 UNIT/0.5 ML ML SQ SCH ×4 (08:25→20:40)
--- NOTE | 2020-10-15 08:55 | RAD REPORT ---
EXAM DESCRIPTION: [facility] Single View10/15/2020 7:04 am CLINICAL HISTORY: Chest pain COMPARISON: October 11, 2020 FINDINGS: Improvement in bilateral pulmonary opacities The heart is normal size IMPRESSION: Partial resolution in a [id number] bilateral pneumonia
[2020-10-15] MEDS ORDERED: levoFLOXacin 500 MG TAB PO SCH (09:00)
--- NOTE | 2020-10-15 11:15 | P.PN ---
Subjective Date of Service: 10/15/20 Chief Complaint: Respiratory failure from mccullough virus Patient gradually improving clinically. High-flow oxygen is being weaned down. He stated he feels better. He has been ambulating in the room. Physical Examination - Vital Signs Temperature: 96.7 F Blood Pressure: 102/65 Pulse: 77 Respirations: 22 Pulse Ox (%): 88 - Physical Exam General: In no apparent distress, Obese Neck: Supple, JVD not distended Cardiovascular: No edema, Regular rate/rhythm, Normal S1 S2 Musculoskeletal: No swelling Integumentary: No rashes, No erythema Neurological: Other (Nonfocal) - Studies Microbiology Data (last 24 hrs): 10/09/20 21:30 Blood - Blood Aerobic Blood Culture - Final No growth in 5 days. 10/09/20 21:30 Blood - Blood Anaerobic Blood Culture - Final No growth in 5 days. 10/09/20 21:10 Blood - Blood Aerobic Blood Culture - Final No growth in 5 days. 10/09/20 21:10 Blood - Blood Anaerobic Blood Culture - Final No growth in 5 days. Assessment And Plan - Current Problems (Diagnosis) (1) Pneumonia due to COVID-19 virus Current Visit: Yes Status: Acute (2) Acute respiratory failure with hypoxia Current Visit: Yes Status: Acute (3) Morbid obesity Current Visit: Yes Status: Acute (4) Diabetes mellitus type 2 in obese Current Visit: Yes Status: Acute (5) UTI (urinary tract infection) Current Visit: Yes Status: Acute - Plan Continue current IV steroid. Wean high-flow oxygen as tolerated Continue Eliquis Continue Lantus and insulin sliding scale for glucose 1 Continue zinc vitamin-D and vitamin-C supplementation. Would change antibiotics to ciprofloxacin based on enterococcus sensitive profile.
--- NOTE | 2020-10-15 11:28 | P.PN ---
Subjective Date of Service: 10/15/20 Chief Complaint: Respiratory failure from mccullough virus P patient is improving feeling better oxygen requirements are declining Review of Systems General: Weakness Respiratory: Shortness of Breath Physical Examination - Vital Signs Temperature: 96.7 F Blood Pressure: 102/65 Pulse: 77 Respirations: 22 Pulse Ox (%): 88 - Studies Microbiology Data (last 24 hrs): 10/09/20 21:30 Blood - Blood Aerobic Blood Culture - Final No growth in 5 days. 10/09/20 21:30 Blood - Blood Anaerobic Blood Culture - Final No growth in 5 days. 10/09/20 21:10 Blood - Blood Aerobic Blood Culture - Final No growth in 5 days. 10/09/20 21:10 Blood - Blood Anaerobic Blood Culture - Final No growth in 5 days. Assessment & Plan - Problems (Diagnosis) (1) Acute respiratory failure due to severe acute respiratory syndrome coronavirus 2 (SARS-CoV-2) infection Current Visit: Yes Status: Acute Plan: Respiratory failure due to mccullough virus is clinically improving change to nasal cannula oxygen he can maintain his sats above 90% on 4 L nasal cannula oxygen plan for discharge agree with the ciprofloxacin p.o. resume metformin white count is normal
[2020-10-15] MEDS: METFORMIN ER 500 MG TAB PO SCH ×2 (13:49→16:32)
[2020-10-15] MEDS: CIPROFLOXACIN HCL 500 MG TAB PO SCH (20:38)
[2020-10-15] MEDS: ATORVASTATIN 40 MG TAB PO SCH (20:39)
[2020-10-15] MEDS: MELATONIN 3 MG TABLET PO SCH (20:39)
[2020-10-16 07:24] LABS: C-Reactive Protein 6.41 mg/L (<3.00); Ferritin 456.2 ng/mL (26-388)
[2020-10-16] MEDS: ZINC SULFATE 220 MG CAP PO SCH (07:57)
[2020-10-16] MEDS: METHYLPREDNISOLONE 40 MG INJ IV SCH (07:57)
[2020-10-16] MEDS: CIPROFLOXACIN HCL 500 MG TAB PO SCH ×2 (07:57→22:32)
[2020-10-16] MEDS: APIXABAN 5 MG TABLET PO SCH ×2 (07:57→22:32)
[2020-10-16] MEDS: FAMOTIDINE 20 MG/2 ML VIAL IV SCH ×2 (07:57→22:32)
[2020-10-16] MEDS: ASCORBIC ACID 500 MG TABLET PO SCH ×2 (07:57→22:32)
[2020-10-16] MEDS: METFORMIN ER 500 MG TAB PO SCH ×2 (07:57→17:00)
[2020-10-16] MEDS: FLUCONAZOLE 100 MG TAB PO SCH (07:58)
[2020-10-16] MEDS: SPIRONOLACTONE 25 MG TABLET PO SCH (07:58)
[2020-10-16] MEDS: INSULIN GLARGINE 100 UNITS/ML SQ SCH ×2 (07:59→23:14)
[2020-10-16] MEDS: INSULIN -REGULAR HUMAN 50 UNIT/0.5 ML ML SQ SCH ×4 (08:00→23:14)
[2020-10-16] MEDS: VITAMIN D 1000 UNIT TAB PO SCH (08:07)
[2020-10-16] MEDS: SITAGLIPTIN PHOS 100 MG TAB PO SCH (09:37)
[2020-10-16] MEDS: THIAMINE HCL 100 MG TABLET PO SCH (09:37)
--- NOTE | 2020-10-16 12:21 | P.PN ---
Subjective Date of Service: 10/16/20 Chief Complaint: Respiratory failure from mccullough virus Patient clinical condition continue to improve He is now tolerating 3 L of oxygen by nasal cannula. Physical Examination - Vital Signs Temperature: 96.5 F Blood Pressure: 98/71 Pulse: 66 Respirations: 27 Pulse Ox (%): 93 - Physical Exam General: Alert, In no apparent distress Cardiovascular: No edema, Regular rate/rhythm Gastrointestinal: Normal bowel sounds Musculoskeletal: No swelling Integumentary: No rashes, No erythema Assessment And Plan - Current Problems (Diagnosis) (1) Pneumonia due to COVID-19 virus Current Visit: Yes Status: Acute (2) Acute respiratory failure with hypoxia Current Visit: Yes Status: Acute (3) Morbid obesity Current Visit: Yes Status: Acute (4) Diabetes mellitus type 2 in obese Current Visit: Yes Status: Acute (5) UTI (urinary tract infection) Current Visit: Yes Status: Acute - Plan Continue current IV steroid. Patient is not tolerating oxygen by nasal cannula. Continue Eliquis Continue Lantus and insulin sliding scale for glucose 1 Continue zinc vitamin-D and vitamin-C supplementation. Continue ciprofloxacin for UTI.
[2020-10-16] MEDS: MELATONIN 3 MG TABLET PO SCH (22:32)
[2020-10-16] MEDS: predniSONE 20 MG TAB PO SCH (22:32)
[2020-10-16] MEDS: ATORVASTATIN 40 MG TAB PO SCH (22:32)
[2020-10-17 05:50] LABS: Absolute Lymphocytes (CBC) 2.3 K/uL (0.7-4.9); Basophils % 0.6 % (0-1.3); Hematocrit 42.3 % (39.6-49.0); Lymphocytes % 20.2 % (15.3-44.8); MPV 8.3 fL (7.6-11.3); RBC Red Blood Cell Count 5.33 M/uL (4.33-5.43)
[2020-10-17 06:06] LABS: BUN Blood Urea Nitrogen 20 mg/dL (7-18); Bicarbonate 32 mmol/L (21-32); Ferritin 439.7 ng/mL (26-388); Glucose Level 129 mg/dL (74-106); Potassium 4.1 mmol/L (3.5-5.1); Sodium Level 139 mmol/L (136-145)
[2020-10-17 06:18] LABS: C-Reactive Protein < 2.90 mg/L (<3.00)
[2020-10-17] MEDS: INSULIN -REGULAR HUMAN 50 UNIT/0.5 ML ML SQ SCH ×2 (07:30→11:31)
[2020-10-17] MEDS: FLUCONAZOLE 100 MG TAB PO SCH (07:37)
[2020-10-17] MEDS: APIXABAN 5 MG TABLET PO SCH (07:37)
[2020-10-17] MEDS: SPIRONOLACTONE 25 MG TABLET PO SCH (07:38)
[2020-10-17] MEDS: FAMOTIDINE 20 MG/2 ML VIAL IV SCH (07:38)
[2020-10-17] MEDS: METFORMIN ER 500 MG TAB PO SCH (07:38)
[2020-10-17] MEDS: THIAMINE HCL 100 MG TABLET PO SCH (07:38)
[2020-10-17] MEDS: predniSONE 20 MG TAB PO SCH (07:38)
[2020-10-17] MEDS: ZINC SULFATE 220 MG CAP PO SCH (07:38)
[2020-10-17] MEDS: INSULIN GLARGINE 100 UNITS/ML SQ SCH (07:39)
[2020-10-17] MEDS: ASCORBIC ACID 500 MG TABLET PO SCH (07:39)
[2020-10-17] MEDS: VITAMIN D 1000 UNIT TAB PO SCH (07:39)
[2020-10-17] MEDS: SITAGLIPTIN PHOS 100 MG TAB PO SCH (07:39)
[2020-10-17 08:42] VITALS: BP 137/84
[2020-10-17 08:56] LABS: Blood Morphology Comment NOT SEEN (NOT SEEN); Platelet Estimate ADEQ; Platelets, Giant FEW
--- NOTE | 2020-10-17 09:02 | P.DS ---
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 Patient also reports nonproductive cough and fever. Patient was hypoxic in the ED with oxygen saturation of around 83% on room air. He tested positive for COVID 19. Chest x-ray and CTA thorax demonstrates diffuse patchy infiltrate from mary pneumonitis. The patient was admitted for further management of COVID pneumonia with hypoxia. Hospital Course: Patient admitted and started on IV steroid, vitamin supplementation. His oxygen requirements increased to the point patient was needing BIPAP. He was also started on Eliquis for thromboembolism prophylaxis. He has a history of type 2 diabetes and was on metformin before admission. He developed steroid induced hyperglycemia needing long-acting insulin and insulin sliding scale. Lantus insulin was titrated up to 30 mg b.i.d. Patient clinical condition gradually improved with treatment. He has now been tolerating oxygen by nasal cannula since yesterday. He has clinically improved. Currently states he feels fine. He denies shortness of breath today. Patient is requiring about 3 L of oxygen to maintain oxygen saturation above 90%. He will be discharged to continue steroid therapy, Eliquis and without oxygen. He is recommended to follow with pulmonary-Dr. Horton within 1-2 weeks. He is discharged with Lantus insulin for glucose management. Januvia added and metformin dose increased to 1000 mg twice a day. Vital Signs/Physical Exam: Temp Pulse Resp BP Pulse Ox 96.5 F L 73 22 H 137/84 85 L 10/17/20 08:00 10/17/20 08:00 10/17/20 08:00 10/17/20 08:00 10/17/20 08:00 General: Alert, In no apparent distress, Other (Morbidly obese) Neck: Supple Respiratory: Diminished (Bilateral) Cardiovascular: No edema, Regular rate/rhythm, Normal S1 S2 Musculoskeletal: No swelling Integumentary: No rashes Neurological: Other (Nonfocal) Laboratory Data at Discharge: WBC 11.6 K/uL (4.3-10.9) H 10/17/20 05:28 Hgb 14.4 g/dL (13.6-17.9) 10/17/20 05:28 Hct 42.3 % (39.6-49.0) 10/17/20 05:28 Plt Count 306 K/uL (152-406) 10/17/20 05:28 PT 14.6 SECONDS (9.5-12.5) H 10/09/20 21:10 INR 1.24 10/09/20 21:10 Sodium 139 mmol/L (136-145) 10/17/20 05:28 Potassium 4.1 mmol/L (3.5-5.1) 10/17/20 05:28 BUN 20 mg/dL (7-18) H 10/17/20 05:28 Creatinine 0.59 mg/dL (0.55-1.3) 10/17/20 05:28 Glucose 129 mg/dL (74-106) H 10/17/20 05:28 Phosphorus 3.9 mg/dL (2.5-4.9) 10/14/20 03:39 Magnesium 2.3 mg/dL (1.8-2.4) 10/14/20 03:39 Total Bilirubin 0.6 mg/dL (0.2-1.0) 10/09/20 21:10 AST 20 U/L (15-37) 10/09/20 21:10 ALT 30 U/L (12-78) 10/09/20 21:10 Alkaline Phosphatase 125 U/L (45-117) H 10/09/20 21:10 Troponin I < 0.02 ng/mL (0.0-0.045) 10/10/20 17:55 Triglycerides 76 mg/dL (<150) 10/10/20 05:00 Cholesterol 106 mg/dL (<200) 10/10/20 05:00 HDL Cholesterol 25 mg/dL (40-60) L 10/10/20 05:00 Cholesterol/HDL Ratio 4.24 10/10/20 05:00 Home Medications: Alcohol Antiseptic Pads [C[employer]ouch Alcohol Prep Pad] 1 each TP TID #100 med..pad 10/17/20 Apixaban [Eliquis] 5 mg PO BID #60 tablet 10/17/20 Ascorbic Acid [Vitamin C*] 500 mg PO BID #60 tablet 10/17/20 Atorvastatin Calcium [Lipitor] 40 mg PO BEDTIME #30 tab 10/17/20 Blood Sugar Diagnostic [C[employer]ouch Test Strip] 1 each MC TID #100 strip 10/17/20 Blood-Glucose Meter [C[employer]ouch Glucose Monitoring] 1 each MC TID #1 kit 10/17/20 Cholecalciferol (Vitamin D3) [Vitamin D 1000 Iu Tab*] 2,000 unit PO DAILY #60 tab 10/17/20 Insulin Glargine,Hum.rec.anlog [Lantus Solostar] 30 unit SQ DAILY #15 ml 10/17/20 Lancing Device [Caretouch Lancing Device] 1 each MC TID #100 each 10/17/20 Metformin ER [Glucophage ER*] 1,000 mg PO BIDWM #60 tab.sa 10/17/20 Sitagliptin Phosphate [Januvia*] 100 mg PO DAILY #30 tab 10/17/20 Spironolactone [Aldactone*] 25 mg PO DAILY #30 tab 10/17/20 Thiamine HCl [Vitamin B-1*] 200 mg PO DAILY #60 tablet 10/17/20 Zinc Sulfate [Zinc Sulfate*] 220 mg PO DAILY #30 cap 10/17/20 predniSONE [Prednisone*] 20 mg PO BID #28 tab 10/17/20 New Medications: Spironolactone [Aldactone*] 25 mg PO DAILY #30 tab Alcohol Antiseptic Pads [Caretouch Alcohol Prep Pad] 1 each TP TID #100 med..pad Blood-Glucose Meter [C[employer]ouch Glucose Monitoring] 1 each MC TID #1 kit Lancing Device [Caretouch Lancing Device] 1 each MC TID #100 each Blood Sugar Diagnostic [Caretouch Test Strip] 1 each MC TID #100 strip Apixaban [Eliquis] 5 mg PO BID #60 tablet Metformin ER [Glucophage ER*] 1,000 mg PO BIDWM #60 tab.sa Sitagliptin Phosphate [Januvia*] 100 mg PO DAILY #30 tab Insulin Glargine,Hum.rec.anlog [Lantus Solostar] 30 unit SQ DAILY #15 ml Atorvastatin Calcium [Lipitor] 40 mg PO BEDTIME #30 tab predniSONE [Prednisone*] 20 mg PO BID #28 tab Thiamine HCl [Vitamin B-1*] 200 mg PO DAILY #60 tablet Ascorbic Acid [Vitamin C*] 500 mg PO BID #60 tablet Cholecalciferol (Vitamin D3) [Vitamin D 1000 Iu Tab*] 2,000 unit PO DAILY #60 tab Zinc Sulfate [Zinc Sulfate*] 220 mg PO DAILY #30 cap Diet: ADA Activity: Ad sulaiman Followup: Breezy Mims DO [Primary Care Provider] - 1-2 Weeks Joey Horton MD [ACTIVE - CAN ADMIT] - 1-2 Weeks Time spent managing pt's care (in minutes): 40
[2020-10-17] MEDS: CIPROFLOXACIN HCL 500 MG TAB PO SCH (09:27)
[2020-10-17 13:02] VITALS: O2SAT 90
[2020-10-17 14:04] VITALS: TEMP 96.9
== END 2020-10-17 13:45 | disposition home or self-care (01) | DRG 871 ==
LOC: ER 20:38 → ERHOLD 23:35 → 3RD-ICU 10-10 15:11
PROVIDERS: ADMIT Internal Medicine; ATTEND Internal Medicine
DX: A41.89 Other specified sepsis (principal); U07.1 COVID-19; J12.89 Other viral pneumonia; J80 Acute respiratory distress syndrome; N39.0 Urinary tract infection, site not specified; Z68.43 Body mass index [BMI] 50.0-59.9, adult; E66.01 Morbid (severe) obesity due to excess calories; E11.65 Type 2 diabetes mellitus with hyperglycemia; I10 Essential (primary) hypertension; E78.5 Hyperlipidemia, unspecified; B95.2 Enterococcus as the cause of diseases classified elsewhere; Z79.899 Other long term (current) drug therapy; Z79.01 Long term (current) use of anticoagulants; Z79.52 Long term (current) use of systemic steroids; Z79.4 Long term (current) use of insulin
CPT/HCPCS: 36415; 71045; 71275; 80048; 80061; 80076; 80202; 81003; 81015; 82728; 82947; 83605; 83735; 83880; 84100; 84145; 84484; 85025; 85379; 85610; 86140; 87040; 87077; 87086; 87088; 87186; 87205; 87804; 93005; 94002; 94003; 94010; 94660; 94760; 96361; 96365; 96375; 99285; J0153; J0456; J0692; J1100; J1815; J1940; J2270; J2920; J2930; J3370; J3475; J7030; J7040; J7050; J7512; Q9967; U0003